=== PATIENT | male | born 1990 | race Caucasian/White ===

== ENCOUNTER 2018-06-19 20:41 | Emergency (ER) | payer SELFPAY ==
[~2018-06-19] VITALS: Wt 98.7 kg
[2018-06-19 21:06] VITALS: BP 118/95; PULSE 57; RESP 20
[2018-06-19] MEDS ORDERED: TETRACAINE 0.5% 4 ML OPH RIGHT EYE ONE (22:00)
[2018-06-19] MEDS ORDERED: FLUORESCEIN STRIP RIGHT EYE ONE (22:00)
[2018-06-19] MEDS ORDERED: IBUP-1542 PO (22:05)
[2018-06-19] MEDS ORDERED: ACET-141 PO (22:06)
[2018-06-19] MEDS ORDERED: OFLO5DRO46 RIGHT EYE (22:06)
--- NOTE | 2018-06-19 22:15 | ERD ---
ER Documentation Chief Complaint Chief Complaint R EYE FOREIGN BODY (WOOD) SUSTAINED WHILE @ WORK PER PT. HPI 28-year-old male presents for right eye pain and foreign body sensation x1 day. Patient is at work and he states that he was sawing wood and thinks that a small piece of wood went into his right eye. He has 9 out of 10 pain. He states that it is constant. Described as a foreign body sensation. Pain is nonradiating. Denies fevers or chills. Denies chest pain or shortness of breath. No treatment tried at home. No other modifying factors noted. He was seen at urgent care and was sent here for further evaluation. ROS All systems reviewed and are negative except as per history of present illness. Medications Home Meds Active Scripts Ofloxacin* (Ocuflox*) 0.3%-5 Ml Ophth Drops, 1 DROP RIGHT EYE QID for corneal abrasion for 7 Days, #1 BOTTLE Prov:ANJALI NEWSOME DO 06/19/18 Acetaminophen* (Acetaminophen*) 500 MG Extra Strength Tablet, 500 MG PO Q4H PRN for PAIN AND OR ELEVATED TEMP, #30 TAB Prov:ANJALI NEWSOME DO 06/19/18 Ibuprofen* (Motrin*) 600 Mg Tab, 600 MG PO Q6H PRN for PAIN AND OR ELEVATED TEMP, #30 TAB Prov:ANJALI NEWSOME DO 06/19/18 Allergies Allergies: Coded Allergies: No Known Allergy (Unverified , 06/19/18) PMhx/Soc Medical and Surgical Hx: pt denies Medical Hx, pt denies Surgical Hx Hx Alcohol Use: Yes Hx Substance Use: No Hx Tobacco Use: Yes Smoking Status: Current every day smoker Physical Exam Vitals Vital Signs Date Temp Pulse Resp B/P (MAP) Pulse Ox O2 O2 Flow FiO2 Time Delivery Rate 06/19/18 97.8 57 20 118/95 100 21:06 (103) Physical Exam Const: No acute distress Head: Atraumatic Eyes: The right eye is red, patient does not open his eyes, vision however is intact, tetracaine was used in the eye was examined under Coleman lamp with fluorescein there was a small abrasion noted, the eyelid on the right side was everted and there was no sign of foreign body ENT: Normal External Ears, Nose and Mouth. Neck: Full range of motion. No meningismus. Resp: Clear to auscultation bilaterally Cardio: Regular rate and rhythm, no murmurs Skin: No petechiae or rashes Ext: No cyanosis, or edema Neur: Awake and alert Psych: Normal Mood and Affect Results 24 hrs Current Medications Medications Dose Sig/Enrique Start Time Status Last (Trade) Ordered Route PRN Stop Time Admin Dose Reason Admin Tetracaine 1 drop ONCE ONCE 06/19/18 DC HCl RIGHT EYE 22:00 (Tetracaine 06/19/18 22:01 0.5% Steri-Unit Candi) Fluorescein 1 strip ONCE ONCE 06/19/18 DC Sodium RIGHT EYE 22:00 (Hapty-K-Qdtj 06/19/18 22:01 p) Procedures/MDM Medical Decision Making: Differential diagnosis includes but not limited to right eye foreign body, corneal abrasion, conjunctivitis, keratitis, iritis Patient appeared well on physical exam. The right eye was red on examination, initial examination including eversion of the right eyelid did not reveal foreign body. Examination was that with fluorescein and after tetracaine application showed a small abrasion in the cornea. Patient was given a prescription for antibiotic eyedrops and pain medication. Advised that he will need follow-up with ophthalmology if the pain continues. Information for follow-up given to patient. Patient advised to follow up with PCP in 1-2 days. Patient advised to return to ED for new or worsening symptoms. Patient stable on discharge from the ED. Disclaimer: Inadvertent spelling and grammatical errors are likely due to EHR/dictation software use and do not reflect on the overall quality of patient care. Also, please note that the electronic time recorded on this note does not necessarily reflect the actual time of the patient encounter. Departure Diagnosis: Primary Impression: Corneal abrasion, right Encounter type: initial encounter Qualified Codes: S05.01XA - Injury of conjunctiva and corneal abrasion without foreign body, right eye, initial encounter Condition: Fair Patient Instructions: Corneal Abrasion Referrals: COMM[facility] YOU HAVE RECEIVED A MEDICAL SCREENING EXAM AND THE RESULTS INDICATE THAT YOU DO NOT HAVE A CONDITION THAT REQUIRES URGENT TREATMENT IN THE EMERGENCY DEPARTMENT. FURTHER EVALUATION AND TREATMENT OF YOUR CONDITION CAN WAIT UNTIL YOU ARE SEEN IN YOUR DOCTORS OFFICE WITHIN THE NEXT 1-2 DAYS. IT IS YOUR RESPONSIBILITY TO MAKE AN APPOINTMENT FOR FOLOW-UP CARE. IF YOU HAVE A PRIMARY DOCTOR --you should call your primary doctor and schedule an appointment IF YOU DO NOT HAVE A PRIMARY DOCTOR YOU CAN CALL OUR PHYSICIAN REFERRAL HOTLINE AT IF YOU CAN NOT AFFORD TO SEE A PHYSICIAN YOU CAN CHOSE FROM THE FOLLOWING FORMERLY [facility], [facility] [address] [facility] [address] [facility]. [facility] [address] [facility] [address] [facility] [address] [facility]. [facility]. [address] [facility] Hours: Mon - Fri 9:00 AM - 5:00 PM Additional Instructions: Call your primary care doctor TOMORROW for an appointment during the next 1-2 days.See the doctor sooner or return here if your condition worsens before your appointment time. Llame al doctor MAANA y edith vadim ANUSHA PARA DENTRO DE 1-2 CORREA.Dgale a la secretaria que nosotros le instruimos hacer esta anusha.Avise o llame si gray condicin se empeora antes de la anusha. Regresa aqui si peor o no mejor. ANJALI NEWSOME DO June 19, 2018 22:15
== END 2018-06-19 22:17 | disposition home or self-care (01) ==
LOC: FTE 20:41
DX: S05.01XA Injury of conjunctiva and corneal abrasion without foreign body, right eye, initial encounter (principal); F17.210 Nicotine dependence, cigarettes, uncomplicated; X58.XXXA Exposure to other specified factors, initial encounter; Y92.9 Unspecified place or not applicable
CPT/HCPCS: 99283